=== PATIENT | male | born 1940 | race Caucasian/White ===

== ENCOUNTER → 2017-02-14 | Outpatient (REF) | payer MEDICARE ==
[2017-02-14 12:42] LABS: ANION GAP 9 MEQ/L (8-16); BLOOD UREA NITROGEN 22 MG/DL (7-18); CALCIUM LEVEL 8.6 MG/DL (8.8-10.2); CARBON DIOXIDE LEVEL 30 MEQ/L (21-32); CHLORIDE LEVEL 100 MEQ/L (98-107); CREATININE FOR GFR 0.88 MG/DL (0.70-1.30); GLOMERULAR FILTRATION RATE > 60.0 (>42); GLUCOSE, FASTING 117 MG/DL (83-110); POTASSIUM SERUM 4.1 MEQ/L (3.5-5.1); SODIUM LEVEL 139 MEQ/L (136-145)
== END ==
LOC: M SFHCCLAY 09:44
PROVIDERS: ATTEND Family Medicine
DX: R19.4 Change in bowel habit (principal); I10 Essential (primary) hypertension; K58.9 Irritable bowel syndrome, unspecified; R73.01 Impaired fasting glucose

== ENCOUNTER → 2017-04-19 | Outpatient (REF) | payer MEDICARE ==
[2017-04-19 16:58] LABS: BASO # 0.1 10^3/uL (0.0-0.2); BASO % 0.8 % (0.0-1.0); EOS # 0.2 10^3/uL (0.0-0.50); EOS % 3.1 % (0.0-3.0); IMMATURE GRANULOCYTE % 0.2 % (0-0); LYMPH # 1.4 10^3/uL (1.5-4.5); LYMPH % 21.1 % (24.0-44.0); MEAN CORPUSCULAR HEMOGLOBIN 29.3 pg (27.0-33.0); MEAN CORPUSCULAR HGB CONC 32.6 g/dl (32.0-36.5); MEAN CORPUSCULAR VOLUME 90.1 fl (80.0-96.0); MONO # 0.6 10^3/uL (0.0-0.8); NEUTROPHILS # 4.2 10^3/uL (1.8-7.7); NEUTROPHILS % 65.8 % (36.0-66.0); PLATELET COUNT, AUTOMATED 234 10^3/uL (150-450); RED CELL DISTRIBUTION WIDTH 12.3 % (11.5-14.5); WHITE BLOOD COUNT 6.4 10^3/uL (4.0-10.0)
[2017-04-19 17:12] LABS: ALBUMIN 3.8 GM/DL (3.2-5.2); ALBUMIN/GLOBULIN RATIO 1.36 (1.00-1.93); ALKALINE PHOSPHATASE 59 U/L (45-117); ALT/SGPT 36 U/L (12-78); AMYLASE 30 U/L (25-115); ANION GAP 7 MEQ/L (8-16); AST/SGOT 28 U/L (7-37); BLOOD UREA NITROGEN 16 MG/DL (7-18); CALCIUM LEVEL 8.7 MG/DL (8.8-10.2); CARBON DIOXIDE LEVEL 31 MEQ/L (21-32); CHLORIDE LEVEL 104 MEQ/L (98-107); GLOMERULAR FILTRATION RATE > 60.0 (>42); GLUCOSE, FASTING 97 MG/DL (83-110); POTASSIUM SERUM 4.3 MEQ/L (3.5-5.1); SODIUM LEVEL 142 MEQ/L (136-145); TOTAL PROTEIN 6.6 GM/DL (6.4-8.2)
== END ==
LOC: M SFHCCLAY 10:48
PROVIDERS: ATTEND Family Medicine
DX: R10.13 Epigastric pain (principal)

== ENCOUNTER → 2017-04-26 | Outpatient (CLI) | payer MEDICARE ==
--- NOTE | 2017-04-26 11:18 | REP ---
Right upper quadrant sonography: History: Abdominal pain times 3 to 4 weeks. Sonographic findings: Scanning through right upper quadrant of the abdomen demonstrates a normal sized thin-walled gallbladder without evidence of stone or polyp. Common bile duct is at the upper range of normal at 7 mm. Main portal vein is upper range of normal as well measuring 14.5 mm in AP dimension. A normal direction of venous flow. Pancreas is partially obscured by abdominal gas but no pancreatic abnormality is seen. There is no evidence of ascites. There is a 1.1 cm simple cyst in the upper pole region of the right kidney. This appears to be a parapelvic cyst. No hydronephrosis seen. Question mild renal cortical atrophy. Increased renal cortical echogenicity. Impression: Increased renal cortical echogenicity and some mild renal cortical atrophy consistent with chronic medical renal disease. No hydronephrosis seen. There is no evidence of cholelithiasis. Borderline CBD and main portal vein diameter is noted. Signed by Yovanny Henderson MD 04/26/2017 02:24 P
== END ==
LOC: M RAD 08:43
PROVIDERS: ATTEND Family Medicine
DX: N40.0 Benign prostatic hyperplasia without lower urinary tract symptoms (principal); R93.41 Abnormal radiologic findings on diagnostic imaging of renal pelvis, ureter, or bladder

== ENCOUNTER → 2018-01-13 | Outpatient (CLI) | payer MEDICARE ==
[2018-01-13 13:55] LABS: ANION GAP 6 MEQ/L (8-16); BLOOD UREA NITROGEN 21 MG/DL (7-18); CALCIUM LEVEL 9.1 MG/DL (8.8-10.2); CARBON DIOXIDE LEVEL 32 MEQ/L (21-32); CHLORIDE LEVEL 103 MEQ/L (98-107); CREATININE FOR GFR 0.84 MG/DL (0.70-1.30); GLOMERULAR FILTRATION RATE > 60.0 (>42); GLUCOSE, FASTING 101 MG/DL (70-100); POTASSIUM SERUM 4.5 MEQ/L (3.5-5.1); SODIUM LEVEL 141 MEQ/L (136-145)
== END ==
LOC: M SMT 10:40
DX: R31.0 Gross hematuria (principal)
CPT/HCPCS: 80048

== ENCOUNTER → 2018-01-17 | Outpatient (REF) | payer MEDICARE ==
[2018-01-17 17:34] LABS: BASO # 0.1 10^3/uL (0.0-0.2); BASO % 0.7 % (0.0-1.0); EOS # 0.2 10^3/uL (0.0-0.50); HEMOGLOBIN 13.8 g/dl (13.5-17.5); IMMATURE GRANULOCYTE % 0.1 % (0-3.0); LYMPH # 1.7 10^3/uL (1.5-4.5); LYMPH % 22.6 % (24.0-44.0); MEAN CORPUSCULAR HEMOGLOBIN 30.6 pg (27.0-33.0); MEAN CORPUSCULAR HGB CONC 33.7 g/dl (32.0-36.5); MEAN CORPUSCULAR VOLUME 90.9 fl (80.0-96.0); MONO # 0.8 10^3/uL (0.0-0.8); MONO % 10.7 % (0.0-5.0); NEUTROPHILS # 4.9 10^3/uL (1.8-7.7); NEUTROPHILS % 63.9 % (36.0-66.0); PLATELET COUNT, AUTOMATED 281 10^3/uL (150-450); RED BLOOD COUNT 4.51 10^6/uL (4.30-6.10); RED CELL DISTRIBUTION WIDTH 12.7 % (11.5-14.5); WHITE BLOOD COUNT 7.6 10^3/uL (4.0-10.0)
== END ==
LOC: M SFHCCLAY 13:38
DX: R31.0 Gross hematuria (principal); I10 Essential (primary) hypertension
CPT/HCPCS: 85025

== ENCOUNTER → 2018-01-18 | Outpatient (CLI) | payer MEDICARE ==
[~2018-01-18] MED LIST: ISOVUE-370 76% 100ML VIAL (Q9967) As Ordered
== END ==
LOC: M RAD 09:18
DX: R31.0 Gross hematuria (principal)
CPT/HCPCS: Q9967

== ENCOUNTER → 2018-02-16 | Outpatient (CLI) | payer MEDICARE | LOC: M RAD 13:26 | DX: N40.0 Benign prostatic hyperplasia without lower urinary tract symptoms (principal); R39.198 Other difficulties with micturition | CPT/HCPCS: 76857 ==

== ENCOUNTER → 2018-06-05 | Outpatient (REF) | payer MEDICARE ==
[2018-06-05 17:52] LABS: ALBUMIN 3.9 GM/DL (3.2-5.2); ALT/SGPT 28 U/L (12-78); BLOOD UREA NITROGEN 19 MG/DL (7-18); CALCIUM LEVEL 8.9 MG/DL (8.8-10.2); CARBON DIOXIDE LEVEL 30 MEQ/L (21-32); CHLORIDE LEVEL 105 MEQ/L (98-107); CHOLESTEROL LEVEL 133 MG/DL (<200); CHOLESTEROL RISK RATIO 2.607 (<5); CREATININE FOR GFR 0.89 MG/DL (0.70-1.30); GLOMERULAR FILTRATION RATE > 60.0 (>42); GLUCOSE, FASTING 106 MG/DL (70-100); HDL CHOLESTEROL 51 MG/DL (>40); LDL CHOLESTEROL 55 MG/DL (<100); NON-HDL-C 82 MG/DL; POTASSIUM SERUM 4.4 MEQ/L (3.5-5.1); SODIUM LEVEL 141 MEQ/L (136-145); TOTAL PROTEIN 6.7 GM/DL (6.4-8.2); TRIGLYCERIDES LEVEL 135 MG/DL (<150)
[2018-06-05 18:30] LABS: HEMOGLOBIN A1c 6.2 %
== END ==
LOC: M SFHCCLAY 11:51
PROVIDERS: ATTEND Family Medicine
DX: R73.01 Impaired fasting glucose (principal); E78.5 Hyperlipidemia, unspecified

== ENCOUNTER → 2018-11-08 | Outpatient (REF) | payer MEDICARE ==
[2018-11-08 11:49] LABS: BASO % 0.5 % (0.0-1.0); EOS # 0.1 10^3/uL (0.0-0.50); EOS % 1.6 % (0.0-3.0); HEMATOCRIT 39.8 % (42.0-52.0); HEMOGLOBIN 13.1 g/dl (13.5-17.5); LYMPH # 1.2 10^3/uL (1.5-4.5); LYMPH % 16.2 % (24.0-44.0); MEAN CORPUSCULAR HEMOGLOBIN 30.8 pg (27.0-33.0); MEAN CORPUSCULAR HGB CONC 32.9 g/dl (32.0-36.5); MEAN CORPUSCULAR VOLUME 93.4 fl (80.0-96.0); MONO # 0.6 10^3/uL (0.0-0.8); MONO % 8.2 % (0.0-5.0); NEUTROPHILS # 5.4 10^3/uL (1.8-7.7); NEUTROPHILS % 73.1 % (36.0-66.0); PLATELET COUNT, AUTOMATED 267 10^3/uL (150-450); RED BLOOD COUNT 4.26 10^6/uL (4.30-6.10); WHITE BLOOD COUNT 7.3 10^3/uL (4.0-10.0)
[2018-11-08 12:02] LABS: INR 1.04; PROTHROMBIN TIME 13.3 SECONDS (11.8-14.0)
[2018-11-08 12:03] LABS: PARTIAL THROMBOPLASTIN TIME 32.8 SECONDS (25.0-38.4)
[2018-11-08 12:21] LABS: ALBUMIN 3.8 GM/DL (3.2-5.2); ALT/SGPT 27 U/L (12-78); BILIRUBIN,TOTAL 1.4 MG/DL (0.2-1.0); BLOOD UREA NITROGEN 24 MG/DL (7-18); CALCIUM LEVEL 8.8 MG/DL (8.8-10.2); CARBON DIOXIDE LEVEL 26 MEQ/L (21-32); CHLORIDE LEVEL 106 MEQ/L (98-107); CREATININE FOR GFR 1.21 MG/DL (0.70-1.30); GLOMERULAR FILTRATION RATE > 60.0 (>42); GLUCOSE, FASTING 131 MG/DL (70-100); POTASSIUM SERUM 4.3 MEQ/L (3.5-5.1); SODIUM LEVEL 141 MEQ/L (136-145); TOTAL PROTEIN 6.9 GM/DL (6.4-8.2)
== END ==
LOC: M LABDRAWC 11:18
PROVIDERS: ATTEND Urology
DX: Z01.812 Encounter for preprocedural laboratory examination (principal); R79.9 Abnormal finding of blood chemistry, unspecified; R39.14 Feeling of incomplete bladder emptying; Z79.01 Long term (current) use of anticoagulants

== ENCOUNTER → 2020-05-27 | Outpatient (CLI) | payer MEDICARE, OTHER ==
--- NOTE | 2020-05-27 18:32 | REP ---
INDICATION: STAGING COLORECTAL CANCER C19. Patient is status post pelvic exenteration for basal cell carcinoma of the prostate with urostomy and colostomy. Pelvic spacer placed at surgery. Resection margins positive. COMPARISON: Comparison CT abdomen and pelvis January 18, 2018.. TECHNIQUE: Forty-seven minutes following the intravenous injection of a 9.18 mCi dose of F-18 FDG, three-dimensional PET scintigraphy is acquired from the skull base to the proximal thighs. Triplanar noncontrast CT scanning is acquired through the same anatomic range for attenuation correction, and image registration with scan parameters optimized to minimize radiation exposure to the patient. PET scintigraphy and CT datasets were fused and displayed on a workstation with multiplanar and projection display capability. FINDINGS: Head and neck soft tissues are unremarkable. There is no abnormal hypermetabolic uptake in the lung parenchyma. No abnormal hilar or mediastinal hypermetabolic john uptake is seen. There is a solitary abnormal hypermetabolic skeletal focus in the tip of the scapula on the right. A small lesion here measures under a cm in diameter. Maximum standard uptake value is 9.73. There is an equivocal focus of minimally increased uptake in the left side of the L5 vertebral body where maximum standard uptake value is 2.89. There is a heterogeneous mildly hypermetabolic uptake in soft tissue surrounding the pelvic spacer. This is difficult to evaluate but CT does appear to show some soft tissue density at the posterior and inferior borders of the spacer and I cannot exclude neoplastic disease along the posterior and inferior margins of the spacer where there is some nodular low level uptake. Maximum standard uptake value here ranges from 3.3-6.4. No other abnormal hypermetabolic uptake is seen in the abdomen or pelvis. No other abnormal skeletal uptake is observed. Right lower quadrant urostomy and left lower quadrant colostomy are noted. There is also a feeding gastrostomy tube. There is some most uptake associated with the feeding tube insertion site but no mass effect is seen. There is increased uptake in the periumbilical region in the midline anterior abdominal wall of uncertain significance. No soft tissue mass is visible. Maximum standard uptake value here is 3.81. On coronal and sagittal images this has a somewhat linear configuration and may is be simple postoperative inflammatory uptake. IMPRESSION: There is increased uptake in a somewhat nodular distribution along the inferior and posterior aspect of the pelvic spacer which is difficult to evaluate. I cannot exclude neoplastic uptake here. Similarly, there is anterior midline abdominal wall uptake which may be postoperative. There is a suspicious focus of increased uptake in the tip of the scapula on the right consistent with a hematogenous skeletal metastasis. <Electronically signed by Gerard Henderson > 05/27/20 [id number]
== END ==
LOC: M PLARAD 10:23
PROVIDERS: ATTEND Urology
DX: C19 Malignant neoplasm of rectosigmoid junction (principal)
CPT/HCPCS: 78815; A9552

== ENCOUNTER → 2020-10-29 | Outpatient (REF) ==
[2020-10-29 19:49] LABS: APPEARANCE, URINE TURBID (CLEAR); BACTERIA, URINE AUTO NEGATIVE (NEGATIVE); BILIRUBIN, URINE AUTO NEGATIVE (NEGATIVE); BLOOD, URINE BLOOD NEGATIVE (NEGATIVE); COLOR, URINE YELLOW (YELLOW); GLUCOSE, URINE (UA) AUTO NEGATIVE (NEGATIVE); KETONE, URINE AUTO NEGATIVE (NEGATIVE); LEUKOCYTE ESTERASE, URINE AUTO 3+ (NEGATIVE); MUCUS, URINE SMALL (NEGATIVE); NITRITE, URINE AUTO NEGATIVE (NEGATIVE); PROTEIN, URINE AUTO 2+ mg/dL (NEGATIVE); RBC, URINE AUTO 2 /HPF (0-3); SPECIFIC GRAVITY URINE AUTO 1.012 (1.002-1.035); SQUAMOUS EPITHELIAL CELL UR AU 0 /HPF (0-6); TRIPLE PHOSPHATE CRYSTALS MODERATE; UROBILINOGEN, URINE AUTO 0.2 mg/dL (0.0-2.0); WBC, URINE AUTO 16 /HPF (0-3)
== END ==
LOC: M LAB REF 19:06
DX: N39.0 Urinary tract infection, site not specified (principal)

== ENCOUNTER → 2020-12-08 | Outpatient (REF) | payer MEDICARE, OTHER ==
[2020-12-08 16:43] LABS: APPEARANCE, URINE TURBID (CLEAR); BACTERIA, URINE AUTO 2+ (NEGATIVE); BILIRUBIN, URINE AUTO NEGATIVE (NEGATIVE); BLOOD, URINE BLOOD 1+ (NEGATIVE); COLOR, URINE YELLOW (YELLOW); GLUCOSE, URINE (UA) AUTO 3+ mg/dL (NEGATIVE); KETONE, URINE AUTO NEGATIVE (NEGATIVE); LEUKOCYTE ESTERASE, URINE AUTO 3+ (NEGATIVE); NITRITE, URINE AUTO POSITIVE (NEGATIVE); PROTEIN, URINE AUTO 1+ mg/dL (NEGATIVE); RBC, URINE AUTO 7 /HPF (0-3); SQUAMOUS EPITHELIAL CELL UR AU 0 /HPF (0-6); TRIPLE PHOSPHATE CRYSTALS SMALL; UROBILINOGEN, URINE AUTO 0.2 mg/dL (0.0-2.0); WBC, URINE AUTO 7 /HPF (0-3)
== END ==
LOC: M LAB REF 16:08
PROVIDERS: ATTEND Physician Assistant
DX: R39.9 Unspecified symptoms and signs involving the genitourinary system (principal)